=== PATIENT | male | born 1955 | race African-American/Black ===

== ENCOUNTER 2018-10-15 14:53 | Emergency (ER) | payer OTHER ==
[2018-10-15] MEDS ORDERED: CYCLOBENZAPRINE 10 MG TABLET PO STA (15:21)
[2018-10-15] MEDS ORDERED: KETOROLAC 60 MG/2 ML VIAL IM STA (15:21)
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
--- NOTE | 2018-10-15 15:41 | XRAY Report ---
Reason: L shoulder pain after wrestling Procedure Date: 10/15/2018 Accession Number: [id number] / [id number] Procedure: XR - Shoulder 3 View LT CPT Code: FULL RESULT: EXAM: LEFT SHOULDER RADIOGRAPHY EXAM DATE: 10/15/2018 03:27 PM. CLINICAL HISTORY: Left shoulder pain after wrestling COMPARISON: None. TECHNIQUE: 3 views. FINDINGS: Bones: No acute fracture. No suspicious osseous lesion. Joints: Mild acromioclavicular and glenohumeral joint osteoarthritis No dislocation. Other: Calcifications in the aortic arch. IMPRESSION: No acute osseous abnormality. RADIA
[2018-10-15 16:10] VITALS: BP 130/80
== END 2018-10-15 16:09 | disposition home or self-care (01) ==
LOC: ED 14:53
DX: S46.912A Strain of unspecified muscle, fascia and tendon at shoulder and upper arm level, left arm, initial encounter (principal); X58.XXXA Exposure to other specified factors, initial encounter; Y93.89 Activity, other specified; F17.200 Nicotine dependence, unspecified, uncomplicated
CPT/HCPCS: 73030; 96372; 99283; 99284; A9270

== ENCOUNTER 2019-12-21 10:58 | Emergency (ER) | payer OTHER ==
--- NOTE | 2019-12-21 11:36 | ED Physician Documentation ---
PD HPI NVD - Stated complaint Stated Complaint: NAUSEA - Chief complaint Chief Complaint: General - History obtained from History obtained from: Patient - History of Present Illness Timing - onset: How many hours ago (few), Today Timing - duration: Hours (few) Timing - details: Gradual onset (onset of nausea after eating breakfast at [employer]. and having pain right mid to lower abd. Increasing more to the RLQ.), Still present Associated symptoms: Abdominal pain, Loss of appetite. No: Fever, Chest pain, Hematemesis, Near syncope / syncope Contributing factors: Bad food (associates onset after eating breakfast at [employer] No: Sick contact, Travel Improved by: No: Position Worsened by: Eating, Moving Similar symptoms before: Has not had sx before Recently seen: Not recently seen Review of Systems Constitutional: denies: Fever, Chills Nose: denies: Rhinorrhea / runny nose, Congestion Throat: denies: Sore throat Respiratory: denies: Cough GI: reports: Abdominal Pain, Nausea. denies: Constipation (had a BM this morning after onset of the pain and nausea. Formed without blood.), Diarrhea : denies: Dysuria Musculoskeletal: denies: Neck pain, Back pain Neurologic: denies: Focal weakness, Numbness, Altered mental status, Headache PD PAST MEDICAL HISTORY - Past Medical History Cardiovascular: None GI: None Psych: Post traumatic stress disorder - Past Surgical History Past Surgical History: Yes - Present Medications Home Medications: Ambulatory Orders Medication Instructions Recorded Confirmed Naproxen [Naprosyn] 500 mg PO BID PRN #30 tablet 09/29/14 Cyclobenzaprine [Flexeril] 10 mg PO TID PRN #20 tablet 10/15/18 Meloxicam [Mobic] 15 mg PO DAILY PRN #20 tablet 10/15/18 Dicyclomine [Bentyl] 10 mg PO QID PRN #10 capsule 12/21/19 Ondansetron Odt [Zofran] 4 mg TL Q6H PRN #10 tablet 12/21/19 - Allergies Allergies/Adverse Reactions: Allergies Allergy/AdvReac Type Severity Reaction Status Date / Time No Known Drug Allergies Allergy Verified 12/21/19 11:11 - Social History Does the pt smoke?: Yes Smoking Status: Current every day smoker Does the pt drink ETOH?: No Does the pt have substance abuse?: No - Immunizations Immunizations are current?: No - POLST Patient has POLST: No PD ED PE NORMAL - Vitals Vital signs reviewed: Yes - General General: Alert and oriented X 3, Well developed/nourished, Other (appears uncomfortable due to abd pain. ) - Neck Neck: Supple, no meningeal sign, No adenopathy - Cardiac Cardiac: RRR, No murmur - Respiratory Respiratory: Clear bilaterally - Abdomen Abdomen: Normal bowel sounds, Soft, Non distended, Other (tender RLQ with local guarding but not percussion nor rebound tenderness. ) Results - Vitals Vitals: Vital Signs - 24 hr 12/21/19 12/21/19 12/21/19 11:07 11:08 12:53 Temperature 37.0 C Heart Rate 113 H 110 H 92 Respiratory 16 20 20 Rate Blood Pressure 157/100 H 157/100 H 134/87 H O2 Saturation 100 99 100 12/21/19 14:35 Temperature Heart Rate 86 Respiratory 86 H Rate Blood Pressure 148/92 H O2 Saturation 100 Oxygen O2 Source Room air - Labs Labs: Laboratory Tests 12/21/19 12/21/19 12/21/19 11:20 11:20 11:20 WBC 10.2 RBC 4.71 Hgb 13.9 L Hct 42.3 MCV 89.8 MCH 29.5 MCHC 32.9 RDW 12.4 Plt Count 204 MPV 11.3 Neut # (Auto) 7.2 H Lymph # (Auto) 2.0 [place] # (Auto) 0.8 Eos # (Auto) 0.1 Baso # (Auto) 0.1 Absolute Nucleated RBC 0.00 Nucleated RBC % 0.0 Sodium 140 Potassium 3.6 Chloride 103 Carbon Dioxide 28 Anion Gap 9.0 BUN 11 Creatinine 0.9 Estimated GFR (MDRD) 103 Glucose 151 H Calcium 9.0 Total Bilirubin 0.5 AST 20 ALT 23 Alkaline Phosphatase 72 Total Protein 7.6 Albumin 4.0 Globulin 3.6 Albumin/Globulin Ratio 1.1 Lipase 26 Urine Color YELLOW Urine Clarity CLEAR Urine pH 6.0 Ur Specific [place] 1.025 Urine Protein NEGATIVE Urine Glucose (UA) NEGATIVE Urine Ketones NEGATIVE Urine Occult Blood NEGATIVE Urine Nitrite NEGATIVE Urine Bilirubin NEGATIVE Urine Urobilinogen 0.2 (NORMAL) Ur Leukocyte Esterase NEGATIVE Ur Microscopic Review NOT INDICATED Urine Culture Comments NOT INDICATED - Rads (name of study) abd/pelvic CT Radiology: Prelim report reviewed (normal appendix. No stones. No diverticulitis. Right renal mass 3 cm that is denser than fluid, so consider tumor, and recommended MRI as follow up. ), See rad report PD MEDICAL DECISION MAKING - ED course Complexity details: reviewed results (normal appendix, no diverticulitis. No ureteral stones. There is incidental to current symptoms, I believe, an unknown renal mass that is denser than fluid, so does not seem cyst. MRI recommended for follow up. ), re-evaluated patient (he is feeling better with fluids and meds. ), considered differential (consider food intolerance, colitis, viral, or concern for appendicitis. ), d/w patient Departure - Departure Disposition: 01 Home, Self Care Clinical Impression: Right sided abdominal pain, Renal mass of unknown nature Nausea and vomiting Qualifiers: Vomiting type: unspecified Vomiting Intractability: non-intractable Qualified Code(s): R11.2 - Nausea with vomiting, unspecified Condition: Stable Record reviewed to determine appropriate education?: Yes Instructions: ED Nausea Vomiting Follow-Up: [facility] [Provider Group] Diomedes Albarran MD [Provider Admit Priv/Credential] - Prescriptions: Dicyclomine [Bentyl] 10 mg PO QID PRN #10 capsule PRN Reason: Cramp Ondansetron Odt [Zofran] 4 mg TL Q6H PRN #10 tablet PRN Reason: Nausea / Vomiting Comments: Your CT scan does not show any appendicitis or gallbladder problems or diverticulitis. I presume your nausea and pain today are either irritation of the intestine or possibly viral illness. I presume some nausea and cramps over the day or 2. Stay well-hydrated. Use Tylenol if needed for pains. You can use dicyclomine for cramps. Ondansetron if needed for nausea. Recheck if not improved well over the next couple of days and return if worsening. Your CT scan does show incidentally a rounded mass of the right kidney does not clear what it is based on the CT scan. Recommendation is for an MRI to be done in the near future outpatient. Follow-up with the [place] system or alternatively I gave you the name of urologist to follow-up with for further evaluation of that. Discharge Date/Time: 12/21/19 14:57
[2019-12-21 11:50] LABS: BASOPHILS # (AUTO) 0.1 10^3/uL (0.0-0.1); EOSINOPHILS # (AUTO) 0.1 10^3/uL (0.0-0.7); HGB - HEMOGLOBIN 13.9 g/dL (14.0-18.0); LYMPHOCYTES % (AUTO) 19.6 %; MEAN CORPUSCULAR HEMOGLOBIN 29.5 pg (27.0-31.0); MEAN CORPUSCULAR HGB CONC 32.9 g/dL (32.0-36.0); MEAN CORPUSCULAR VOLUME 89.8 fL (80.0-94.0); MEAN PLATELET VOLUME 11.3 fL (7.4-11.4); MONOCYTES # (AUTO) 0.8 10^3/uL (0.0-1.0); MONOCYTES % (AUTO) 7.3 %; NEUTROPHILS # (AUTO) 7.2 10^3/uL (1.5-6.6); NEUTROPHILS % (AUTO) 70.7 %; PLT - PLATELET COUNT 204 10^3/uL (130-450); RED BLOOD COUNT 4.71 10^6/uL (4.70-6.10); RED CELL DISTRIBUTION WIDTH 12.4 % (12.0-15.0); WHITE BLOOD COUNT 10.2 x10^3/uL (4.8-10.8)
[2019-12-21 11:51] LABS: BILIRUBIN,URINE NEGATIVE (NEGATIVE); GLUCOSE, URINE (UA) NEGATIVE (NEGATIVE); KETONES,URINE (UA) NEGATIVE (NEGATIVE); LEUKOCYTE ESTERASE, URINE NEGATIVE (NEGATIVE); NITRITE,URINE NEGATIVE (NEGATIVE); OCCULT BLOOD,URINE NEGATIVE (NEGATIVE); PROTEIN,URINE NEGATIVE (NEGATIVE); UROBILINOGEN,URINE 0.2 (NORMAL) E.U./dL (NORMAL)
[2019-12-21 11:54] LABS: CLARITY,URINE CLEAR (CLEAR)
[2019-12-21 12:00] LABS: ALBUMIN/GLOBULIN RATIO 1.1 (1.0-2.2); BILIRUBIN,TOTAL 0.5 mg/dL (0.2-1.0); CREATININE 0.9 mg/dL (0.6-1.2); TOTAL PROTEIN 7.6 g/dL (6.7-8.2)
[2019-12-21] MEDS ORDERED: MORPHINE 2 MG/ML CARPUJECT IVP STA (12:29)
[2019-12-21] MEDS ORDERED: ONDANSETRON 4 MG/2 ML VIAL IVP STA (12:29)
[2019-12-21] MEDS ORDERED: SODIUM CHLORIDE 0.9% 1,000 ML IV STA (12:29)
[2019-12-21] MEDS ORDERED: IOVERSOL 320 100 ML VIAL IVP ONE ×2 (13:30→16:01)
--- NOTE | 2019-12-21 14:03 | CT Report ---
PROCEDURE: Abdomen/Pelvis W INDICATIONS: nausea/ right lower abd pain today CONTRAST: IV CONTRAST: Optiray 320 ml: 100 PO CONTRAST: *NO PO CONTRAST TECHNIQUE: After the administration of IV contrast, 5 mm thick sections acquired from the diaphragms to the symp hysis. 5 mm thick coronal and sagittal reformats were acquired. For radiation dose reduction, the f ollowing was used: automated exposure control, adjustment of mA and/or kV according to patient size. COMPARISON: None. FINDINGS: Image quality: Excellent. ABDOMEN: Lung bases: Lung bases are clear. Heart size is normal. Solid organs: Liver and spleen are normal in size and enhancement. No focal lesion. Gallbladder is u nremarkable. Biliary system is non dilated. Pancreas enhances normally. No adrenal nodules. Kidne ys demonstrate normal size, without hydronephrosis. Right kidney superior pole partially exophytic in termediate density lesion measuring 3.1 x 3 cm, (05/23). The lesion abuts the liver. Peritoneum and bowel: Bowel loops demonstrate normal wall thickness and caliber. Diverticulosis. No acute diverticulitis. Normal appendix. No free fluid or air. Nodes and vessels: No retroperitoneal or mesenteric adenopathy by size criteria. Aorta and inferior vena cava are normal in size. Mild calcified atherosclerotic plaque. Renal arteries and veins are pa tent. Miscellaneous: No ventral hernias. PELVIS: Genitourinary: Bladder wall thickness is normal. Small calcification in the region of the left ingui nal canal. Miscellaneous: No inguinal hernias or adenopathy. Bones: No suspicious bony lesions. No vertebral body compression fractures. IMPRESSION: 1. No acute inflammatory process identified. No free fluid. 2. Incidental right renal mass measuring 3.1 cm. This is concerning for renal cell carcinoma until pr oven otherwise. -Renal MRI with IV contrast can be utilized to further characterize this lesion. 3. No adenopathy. Reviewed by: Wenceslao Christiansen MD on 12/21/2019 2:02 PM PDT Approved by: Wenceslao Christiansen MD on 12/21/2019 2:02 PM PDT Station ID: [id number]
[2019-12-21 14:36] VITALS: BP 148/92
== END 2019-12-21 14:57 | disposition home or self-care (01) ==
LOC: ED 10:58
DX: R10.31 Right lower quadrant pain (principal); R11.2 Nausea with vomiting, unspecified; N28.89 Other specified disorders of kidney and ureter; F17.200 Nicotine dependence, unspecified, uncomplicated
CPT/HCPCS: 36415; 74177; 80053; 81003; 83690; 85025; 96374; 99284; Q9967; 81001; 87086

== ENCOUNTER 2020-05-18 11:06 | Emergency (ER) | payer OTHER ==
[2020-05-18] MEDS ORDERED: SODIUM CHLORIDE 0.9% 1,000 ML IV STA ×3 (11:41→13:14)
--- NOTE | 2020-05-18 11:42 | ED Physician Documentation ---
History of Present Illness - Stated complaint Stated Complaint: NAUSEA - Chief complaint Chief Complaint: Neuro - History obtained from History obtained from: Patient - History of Present Illness Timing: Today - Additonal information Additional information: dizziness and nausea after getting 2nd COVID vax last night. Review of Systems Constitutional: denies: Fever Eyes: denies: Decreased vision Ears: denies: Ear pain Nose: denies: Congestion Throat: denies: Sore throat Cardiac: denies: Chest pain / pressure, Palpitations Respiratory: denies: Dyspnea, Cough GI: reports: Nausea. denies: Abdominal Pain, Vomiting : denies: Dysuria, Frequency Skin: denies: Rash Musculoskeletal: denies: Neck pain, Back pain, Extremity pain Neurologic: denies: Generalized weakness, Focal weakness, Numbness PD PAST MEDICAL HISTORY - Past Medical History Cardiovascular: None GI: None Psych: Post traumatic stress disorder Musculoskeletal: Osteoarthritis - Past Surgical History Past Surgical History: Yes - Present Medications Home Medications: Ambulatory Orders Medication Instructions Recorded Confirmed Naproxen [Naprosyn] 500 mg PO BID PRN #30 tablet 09/29/14 05/18/20 Cyclobenzaprine [Flexeril] 10 mg PO TID PRN #20 tablet 10/15/18 05/18/20 Meloxicam [Mobic] 15 mg PO DAILY PRN #20 tablet 10/15/18 05/18/20 Dicyclomine [Bentyl] 10 mg PO QID PRN #10 capsule 12/21/19 05/18/20 Ondansetron Odt [Zofran] 4 mg TL Q6H PRN #10 tablet 12/21/19 05/18/20 - Allergies Allergies/Adverse Reactions: Allergies Allergy/AdvReac Type Severity Reaction Status Date / Time No Known Drug Allergies Allergy Verified 05/18/20 11:29 - Social History Does the pt smoke?: Yes Smoking Status: Current every day smoker Does the pt drink ETOH?: No Does the pt have substance abuse?: No - Immunizations Immunizations are current?: No - POLST Patient has POLST: No PD ED PE NORMAL - Vitals Vital signs reviewed: Yes (tachycardic and hypertensive ) - General General: Alert and oriented X 3, No acute distress, Well developed/nourished - HEENT HEENT: Atraumatic, PERRL, EOMI - Neck Neck: Supple, no meningeal sign, No bony TTP - Cardiac Cardiac: No murmur, Other (tachy to 125) - Respiratory Respiratory: No respiratory distress, Clear bilaterally - Abdomen Abdomen: Normal bowel sounds, Soft, Non tender, Non distended, No organomegaly - Back Back: No CVA TTP, No spinal TTP - Derm Derm: Normal color, Warm and dry, No rash - Extremities Extremities: No deformity, No edema - Neuro Neuro: Alert and oriented X 3, book solicitor 2-12 intact, No motor deficit, No sensory deficit, Normal speech Eye Opening: Spontaneous Motor: Obeys Commands Verbal: Oriented GCS Score: 15 - Psych Psych: Normal mood, Normal affect Results - Vitals Vitals: Vital Signs - 24 hr 05/18/20 05/18/20 05/18/20 11:20 11:45 12:11 Temperature 99.7 C H Heart Rate 132 H 120 H 109 H Respiratory 18 20 Rate Blood Pressure 133/99 H 140/97 H O2 Saturation 99 98 05/18/20 05/18/20 05/18/20 13:39 13:50 13:54 Temperature Heart Rate 106 H 92 106 H Respiratory 16 19 24 Rate Blood Pressure O2 Saturation 100 100 95 Oxygen O2 Source Room air - EKG (time done) 1130 Rate: Rate (enter#) (124) Rhythm: Sinus tachycardia Ischemia: Normal ST segments Compare to prior EKG: Changed from prior EKG (SPT 08-31-2014 rate has increased) Computer interpretation: Agree with computer - Labs Labs: Laboratory Tests 05/18/20 05/18/20 05/18/20 11:31 11:31 12:23 WBC 13.2 H RBC 4.79 Hgb 13.9 L Hct 43.4 MCV 90.6 MCH 29.0 MCHC 32.0 RDW 12.0 Plt Count 190 MPV 11.1 Neut # (Auto) 11.2 H Lymph # (Auto) 0.8 L [place] # (Auto) 1.1 H Eos # (Auto) 0.0 Baso # (Auto) 0.1 Absolute Nucleated RBC 0.00 Nucleated RBC % 0.0 Sodium 137 Potassium 3.8 Chloride 99 L Carbon Dioxide 26 Anion Gap 12.0 BUN 13 Creatinine 1.1 Estimated GFR (MDRD) 82 L Glucose 146 H Calcium 9.4 Total Bilirubin 0.5 AST 21 ALT 23 Alkaline Phosphatase 83 Total Protein 7.5 Albumin 4.1 Globulin 3.4 Albumin/Globulin Ratio 1.2 Lipase 24 Urine Color YELLOW Urine Clarity CLEAR Urine pH 7.0 Ur Specific [place] 1.015 Urine Protein NEGATIVE Urine Glucose (UA) 100 H Urine Ketones NEGATIVE Urine Occult Blood NEGATIVE Urine Nitrite NEGATIVE Urine Bilirubin NEGATIVE Urine Urobilinogen 0.2 (NORMAL) Ur Leukocyte Esterase NEGATIVE Ur Microscopic Review NOT INDICATED Urine Culture Comments NOT INDICATED Procedures - IVC sono (time) 1135 Bedside IVC sono: IVC measures (cm) (1.09), IVC collapsed c insp (cm) (complete), Dehydration (est 1-2 liter deficit) PD MEDICAL DECISION MAKING - ED course Complexity details: reviewed old records, reviewed results, re-evaluated patient, considered differential, d/w patient ED course: 65-year-old male with history of PTSD and a right renal mass has had his second Covid shot last night at about 5 PM and following that he felt a little dizzy and lightheaded. This morning on awakening he felt nauseated and again felt dizzy and lightheaded. He has come to the emergency department for evaluation with a rapid heart rate and nausea. Is found to be dehydrated on interrogation the inferior vena cava and is administered fluid with reduction in his heart rate. He is administered intravenous Ofirmev air as well he feels some improved is no longer nauseated.This does seem to be a vaccine related reaction and the expectation is rapid resolution. Departure - Departure Disposition: 01 Home, Self Care Clinical Impression: Dehydration Vaccine reaction Qualifiers: Encounter type: initial encounter Qualified Code(s): T50.Z95A - Adverse effect of other vaccines and biological substances, initial encounter Condition: Stable Instructions: ED Dehydration Follow-Up: Your, doctor [Other]
[2020-05-18 11:46] VITALS: BP 140/97
[2020-05-18 11:56] LABS: BASOPHILS # (AUTO) 0.1 10^3/uL (0.0-0.1); BASOPHILS % (AUTO) 0.7 %; EOSINOPHILS % (AUTO) 0.1 %; HCT - HEMATOCRIT 43.4 % (42.0-52.0); HGB - HEMOGLOBIN 13.9 g/dL (14.0-18.0); LYMPHOCYTES # (AUTO) 0.8 10^3/uL (1.5-3.5); MEAN CORPUSCULAR VOLUME 90.6 fL (80.0-94.0); MEAN PLATELET VOLUME 11.1 fL (7.4-11.4); MONOCYTES # (AUTO) 1.1 10^3/uL (0.0-1.0); MONOCYTES % (AUTO) 8.5 %; NEUTROPHILS # (AUTO) 11.2 10^3/uL (1.5-6.6); NEUTROPHILS % (AUTO) 84.4 %; PLT - PLATELET COUNT 190 10^3/uL (130-450); RED BLOOD COUNT 4.79 10^6/uL (4.70-6.10); WHITE BLOOD COUNT 13.2 x10^3/uL (4.8-10.8)
[2020-05-18 12:08] LABS: ALBUMIN 4.1 g/dL (3.2-5.5); ALBUMIN/GLOBULIN RATIO 1.2 (1.0-2.2); BILIRUBIN,TOTAL 0.5 mg/dL (0.2-1.0); CALCIUM 9.4 mg/dL (8.5-10.3); CREATININE 1.1 mg/dL (0.6-1.2); POTASSIUM 3.8 mmol/L (3.5-5.0); TOTAL PROTEIN 7.5 g/dL (6.7-8.2)
[2020-05-18 12:28] LABS: BILIRUBIN,URINE NEGATIVE (NEGATIVE); GLUCOSE, URINE (UA) 100 mg/dL (NEGATIVE); KETONES,URINE (UA) NEGATIVE (NEGATIVE); LEUKOCYTE ESTERASE, URINE NEGATIVE (NEGATIVE); NITRITE,URINE NEGATIVE (NEGATIVE); OCCULT BLOOD,URINE NEGATIVE (NEGATIVE); PROTEIN,URINE NEGATIVE (NEGATIVE); UROBILINOGEN,URINE 0.2 (NORMAL) E.U./dL (NORMAL)
[2020-05-18 12:29] LABS: CLARITY,URINE CLEAR (CLEAR)
[2020-05-18] MEDS ORDERED: ACETAMINOPHEN 1,000 MG/100 ML 100 ML IV ONE (13:10)
== END 2020-05-18 14:19 | disposition home or self-care (01) ==
LOC: ED 11:06
DX: T88.1XXA Other complications following immunization, not elsewhere classified, initial encounter (principal); E86.0 Dehydration; R00.0 Tachycardia, unspecified; N28.89 Other specified disorders of kidney and ureter; F17.200 Nicotine dependence, unspecified, uncomplicated
CPT/HCPCS: 36415; 80053; 81003; 83690; 85025; 93005; 96361; 96374; 99283; 99284; J0131; 81001; 87086

== ENCOUNTER 2021-12-17 11:13 | Emergency (ER) | payer OTHER ==
[2021-12-17 11:57] VITALS: BP 144/105
[2021-12-17 12:19] LABS: BASOPHILS # (AUTO) 0.1 10^3/uL (0.0-0.1); EOSINOPHILS # (AUTO) 0.2 10^3/uL (0.0-0.7); EOSINOPHILS % (AUTO) 1.6 %; HGB - HEMOGLOBIN 13.6 g/dL (14.0-18.0); LYMPHOCYTES # (AUTO) 1.7 10^3/uL (1.5-3.5); LYMPHOCYTES % (AUTO) 16.3 %; MEAN CORPUSCULAR HEMOGLOBIN 28.2 pg (27.0-31.0); MEAN CORPUSCULAR HGB CONC 31.6 g/dL (32.0-36.0); MEAN PLATELET VOLUME 10.9 fL (7.4-11.4); MONOCYTES # (AUTO) 0.9 10^3/uL (0.0-1.0); MONOCYTES % (AUTO) 8.3 %; NEUTROPHILS # (AUTO) 7.4 10^3/uL (1.5-6.6); NEUTROPHILS % (AUTO) 72.5 %; PLT - PLATELET COUNT 196 10^3/uL (130-450); RED BLOOD COUNT 4.83 10^6/uL (4.70-6.10); RED CELL DISTRIBUTION WIDTH 12.5 % (12.0-15.0); WHITE BLOOD COUNT 10.2 x10^3/uL (4.8-10.8)
[2021-12-17 12:20] LABS: BILIRUBIN,URINE NEGATIVE (NEGATIVE); GLUCOSE, URINE (UA) NEGATIVE (NEGATIVE); KETONES,URINE (UA) NEGATIVE (NEGATIVE); LEUKOCYTE ESTERASE, URINE NEGATIVE (NEGATIVE); NITRITE,URINE NEGATIVE (NEGATIVE); OCCULT BLOOD,URINE NEGATIVE (NEGATIVE); PROTEIN,URINE NEGATIVE (NEGATIVE); UROBILINOGEN,URINE 0.2 (NORMAL) E.U./dL (NORMAL)
[2021-12-17 12:22] LABS: CLARITY,URINE CLEAR (CLEAR)
[2021-12-17 12:30] LABS: ALBUMIN 4.1 g/dL (3.2-5.5); ALBUMIN/GLOBULIN RATIO 1.2 (1.0-2.2); BILIRUBIN,TOTAL 0.6 mg/dL (0.2-1.0); CALCIUM 9.2 mg/dL (8.5-10.3); POTASSIUM 3.4 mmol/L (3.5-5.0); TOTAL PROTEIN 7.6 g/dL (6.7-8.2)
[2021-12-17] MEDS ORDERED: ONDANSETRON ODT 4 MG TABLET TL STA (13:17)
[2021-12-17] MEDS ORDERED: PANTOPRAZOLE 40 MG TABLET PO STA (13:17)
[2021-12-17] MEDS ORDERED: MAG HYDROX/AL HYDROX/SIMETH 30 ML UDC PO STA (13:18)
[2021-12-17] MEDS ORDERED: LIDOCAINE VISCOUS 2% 15 ML UDC MM STA (13:18)
--- NOTE | 2021-12-17 13:21 | ED Physician Documentation ---
PD HPI ABD PAIN - Stated complaint Stated Complaint: NAUSEA - Chief complaint Chief Complaint: Abd Pain - History obtained from History obtained from: Patient - Additional information Additional information: The patient comes to the emergency department chief complaint of nausea and upset bowels. He states that it started this morning and he felt that his bowels were gurgling a lot and that he had to have a bowel movement. The patient states that his stool was somewhat soft, but he did not have any diarrhea. He denies any blood in his stools. He states that then, he began to feel nauseated and felt as though his GERD was acting up. He states he still feels the sensation of needing to burp somewhere up in his chest. He denies any shortness of breath. No vomiting. He denies any dysuria. No radiation of the discomfort to anywhere else. No other complaints at this time. Review of Systems Ten Systems: 10 systems reviewed and negative Constitutional: reports: Reviewed and negative Eyes: reports: Reviewed and negative Ears: reports: Reviewed and negative Nose: reports: Reviewed and negative Throat: reports: Reviewed and negative Cardiac: reports: Chest pain / pressure Respiratory: reports: Reviewed and negative GI: reports: Nausea. denies: Vomiting : reports: Reviewed and negative Skin: reports: Reviewed and negative Musculoskeletal: reports: Reviewed and negative Neurologic: reports: Reviewed and negative Psychiatric: reports: Reviewed and negative Endocrine: reports: Reviewed and negative Immunocompromised: reports: Reviewed and negative PD PAST MEDICAL HISTORY - Past Medical History Cardiovascular: None GI: None Psych: Post traumatic stress disorder Musculoskeletal: Osteoarthritis - Past Surgical History Past Surgical History: Yes - Present Medications Home Medications: Ambulatory Orders Medication Instructions Recorded Confirmed Naproxen [Naprosyn] 500 mg PO BID PRN #30 tablet 09/29/14 05/18/20 Cyclobenzaprine [Flexeril] 10 mg PO TID PRN #20 tablet 10/15/18 05/18/20 Meloxicam [Mobic] 15 mg PO DAILY PRN #20 tablet 10/15/18 05/18/20 Dicyclomine [Bentyl] 10 mg PO QID PRN #10 capsule 12/21/19 05/18/20 Ondansetron Odt [Zofran] 4 mg TL Q6H PRN #10 tablet 12/21/19 05/18/20 Omeprazole Magnesium 20 mg PO DAILY #30 tab 12/17/21 Ondansetron Odt [Zofran] 4 mg TL Q6H PRN #10 tablet 12/17/21 - Allergies Allergies/Adverse Reactions: Allergies Allergy/AdvReac Type Severity Reaction Status Date / Time No Known Drug Allergies Allergy Verified 12/17/21 11:57 - Social History Does the pt smoke?: Yes Smoking Status: Current every day smoker Does the pt drink ETOH?: No Does the pt have substance abuse?: No - Immunizations Immunizations are current?: No - POLST Patient has POLST: No PD ED PE NORMAL - Vitals Vital signs reviewed: Yes - General General: Alert and oriented X 3, No acute distress, Well developed/nourished - HEENT HEENT: Atraumatic, PERRL, EOMI, Moist mucous membranes - Neck Neck: Supple, no meningeal sign - Cardiac Cardiac: RRR, No murmur, Strong equal pulses - Respiratory Respiratory: No respiratory distress, Clear bilaterally - Abdomen Abdomen: Soft, Non tender, Non distended - Derm Derm: Normal color, Warm and dry, No rash - Extremities Extremities: No deformity, No edema, No calf tenderness / cord - Neuro Neuro: Alert and oriented X 3 - Psych Psych: Normal mood, Normal affect Results - Vitals Vitals: Vital Signs - 24 hr 12/17/21 11:52 Heart Rate 103 H Respiratory 16 Rate Blood Pressure 144/105 H O2 Saturation 99 Oxygen O2 Source Room air - Labs Labs: Laboratory Tests 12/17/21 12/17/21 12/17/21 12:10 12:14 12:14 WBC 10.2 RBC 4.83 Hgb 13.6 L Hct 43.0 MCV 89.0 MCH 28.2 MCHC 31.6 L RDW 12.5 Plt Count 196 MPV 10.9 Neut # (Auto) 7.4 H Lymph # (Auto) 1.7 [place] # (Auto) 0.9 Eos # (Auto) 0.2 Baso # (Auto) 0.1 Absolute Nucleated RBC 0.00 Nucleated RBC % 0.0 Sodium 137 Potassium 3.4 L Chloride 100 L Carbon Dioxide 28 Anion Gap 9.0 BUN 14 Creatinine 1.0 Estimated GFR (MDRD) 91 Glucose 137 H Calcium 9.2 Total Bilirubin 0.6 AST 24 ALT 28 Alkaline Phosphatase 78 Total Protein 7.6 Albumin 4.1 Globulin 3.5 Albumin/Globulin Ratio 1.2 Lipase 35 Urine Color YELLOW Urine Clarity CLEAR Urine pH 6.0 Ur Specific [place] 1.020 Urine Protein NEGATIVE Urine Glucose (UA) NEGATIVE Urine Ketones NEGATIVE Urine Occult Blood NEGATIVE Urine Nitrite NEGATIVE Urine Bilirubin NEGATIVE Urine Urobilinogen 0.2 (NORMAL) Ur Leukocyte Esterase NEGATIVE Ur Microscopic Review NOT INDICATED Urine Culture Comments NOT INDICATED PD MEDICAL DECISION MAKING - ED course Complexity details: reviewed results, re-evaluated patient, considered differential, d/w patient ED course: The patient was much improved when seen in the emergency department, and abdomen was benign. The patient was worked up with labs, which were unremarkable. He was treated with Zofran, Protonix, and a GI cocktail in the emergency department. He did state he had stopped taking his omeprazole last year for his GERD and had not even renewed the prescription. I felt that this would most likely be of help, and I have represcribed the omeprazole. Have also given a prescription for Zofran. We have discussed that if he continues to feels that he is having indigestion, he will need to talk to his doctor about potentially having a scope done. At this point in time, he is stable for discharge home. Departure - Departure Disposition: 01 Home, Self Care Clinical Impression: Nausea, Gastroenteritis Condition: Stable Instructions: ED Gastroenteritis Non Infec, ED Gastroenteritis Viral Prescriptions: Omeprazole Magnesium 20 mg PO DAILY #30 tab Ondansetron Odt [Zofran] 4 mg TL Q6H PRN #10 tablet PRN Reason: Nausea / Vomiting Comments: Your labs look good today. You have been treated for your symptoms, which could be viral in nature or could just be some random stomach and intestine upset. If you continue having symptoms like this for more than the next couple of weeks, you will need to talk to About having scopes done. Your prescriptions have been electronically transmitted to the [facility] pharmacy in [place].
== END 2021-12-17 13:52 | disposition home or self-care (01) ==
LOC: ED 11:13
DX: R11.0 Nausea (principal); K52.9 Noninfective gastroenteritis and colitis, unspecified; F17.200 Nicotine dependence, unspecified, uncomplicated
CPT/HCPCS: 36415; 80053; 81003; 83690; 85025; 99282; 99283; A9270; Q0162; 81001; 87086